=== PATIENT | male | born 1945 | race Caucasian/White ===

== ENCOUNTER 2016-07-19 08:35 | Day surgery (SDC) | payer MEDICARE, OTHER ==
--- NOTE | 2016-07-18 13:27 | HP ---
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 Debridement DATE OF SURGERY: July 19, 2016 SURGEON: Shemar Jennings M.D. PCP: Dr. 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 * Medication list reviewed with patient allergy list reviewed with patient. Home is here today for a pre-op H&P for upcoming proposed surgery. Patient's last consultation by Dr. Jennings is as follows: 70-year-old male, well-known to me for multiple orthopedic issues. He has a history of a remote left shoulder rotator cuff repair which I did arthroscopically. He had a repeat arthroscopy on 01/12/15 with a biceps tenotomy and at that time his cuff was intact. In October of last year he was trying a catch a ladder from falling on his , reaching his arm up away from his body overhead. He felt immediate pain with anterior and anterolateral discomfort. This has been intermittently quite problematic and limiting for him. Because of the symptoms he has backed off on any lifting. He does feel some weakness, no neck pain, no radicular symptoms. He saw [facility] for this on 04/19/16. Radiographs showed no acute findings. Additional workup since that visit has included an MRA. There is some signal compromising from his metallic anchors which makes complete interpretation somewhat difficult, although it appears that he has at least a high grade partial thickness tear involving the supraspinatus. He is interested in additional management options. We discussed the risks and benefits of both operative and non-operative management. He has elected to proceed with surgery and presents today preoperatively. He has had no recent illnesses. CURRENT MEDICATION * *Supplement Miscellaneous as directed fish oil, vitamin D3, glucosamine/chondroiten/MSM, Protein powder, 0 days, 0 refills * Adult Aspirin EC Low Strength 81 MG Tablet Delayed Release 1 once a day 0 days, 0 refills * Ibuprofen 200 MG Tablet as needed 0 days, 0 refills PAST MEDICAL/SURGICAL HISTORY Reported: Shoulder Arthroscopy Left shoulder scope/biceps tenotomy/debridement/SAD 01/12/[address] Jennings. Medical: History of Arthritis, Depression, and Poor healing wounds/lesions. Surgical / Procedural: Surgical / procedural history Back surgery, left knee scope by Dr. Jennings, left shoulder scope Dr. Jennings , right shoulder [address] Jennings, Bilat Thigh lipoma removal 08/26/[address] Jennings left and right upper mass removed 08/26/09, Right shoulder scope 06/15/11, 05/16/11, 11/17/10, replacement of a hip Left hip replaced 04/01/13, Right hip resurfacing 05/12/08, and Arthroscopy left knee surgery (unknown date), Right knee scope/MM/debridement done 08/12/[address] Jennings. Total Right Hip Replacement BHR 05/12/08. SOCIAL HISTORY Behavioral: Caffeine use, former smoker, and non-smoker quit smoking stopped 2004 after smoking for 25 years. Smoking status: Former smoker. Alcohol: Alcohol 1-2 drinks a week and alcohol use. Work: Occupation Retired. ALLERGIES * Codeine Derivatives FAMILY HISTORY Cancer father Stroke syndrome mother REVIEW OF SYSTEMS Systemic: No fever and no recent weight change. Head: No head symptoms. Cardiovascular: No cardiovascular symptoms. Pulmonary: No pulmonary symptoms. Gastrointestinal: No gastrointestinal symptoms. Psychological: No psychological symptoms. Skin: No skin lesions and no rash. PHYSICAL FINDINGS * Vitals taken 07/06/2016 12:04 pm BP-Sitting R 156/101 mmHg BP Cuff Size Regular Pulse Rate-Sitting 68 bpm Temp-Oral 97.4 F Height 67.75 in Weight 174 lbs Body Mass Index 26.7 kg/m2 Body Surface Area 1.92 m2 Pain Level 2 * Vitals taken 07/06/2016 12:06 pm BP-Sitting L 137/92 mmHg BP Cuff Size Regular Ears, Nose, Throat: * ENT: normal. Lungs: * Clear to auscultation. Cardiovascular: Heart Rate and Rhythm: * Normal. Abdomen: * Normal. Neurological: Motor: * Dominant Hand = Right Hand. Patient is a well-developed, well-nourished male in no acute distress, normal-appearing mood and affect. Evaluation of the shoulder girdle shows skin integrity to be well preserved, no wounds, rashes or lesions. He has previous well-healed arthroscopic portal sites. Evaluation of the shoulder shows mild tenderness anteriorly in the subacromial space. ROM is 150 degrees of elevation actively, 120 degrees of abduction, IR to his beltline, ER at his side to 60. He has give-way weakness secondary to pain with resisted supraspinatus testing. Normal external rotation strength testing, negative belly press. Biceps provocation tests are equivocal. He does have some asymmetry of the bicipital contour consistent with his prior biceps tenotomy. Elbow motion is full. Distal neurovascular exam is intact and symmetric. Pulses are palpable. Spurling's test is negative. TESTS * Test: CBC WITH DIFF Report Date: 07/06/2016 WBC 7.0 10*3/mL BASOPHIL 0.7 % RBC 4.59 10*6/uL Low NEUTROPHILS 64.6 % MCH 30.3 pg MCHC 33.4 g/dL RDW 12.4 % MCV 90.6 fL PLATELET COUNT 225 10*3/mL IMM NEUT % 0.1 % IMM NEUT # 0.0 10*3/mL MONOCYTES 8.5 % EOSINOPHIL 3.3 % High HCT 41.6 % HGB 13.9 g/L Low LYMPHOCYTE 22.8 % ANC 4.5 10*3/mL * Test: COMPREHENSIVE METABOLIC PANEL Report Date: 07/06/2016 ALT/SGPT 15 U/L ALBUMIN 4.2 g/dL ALB/GLOB RATIO 1.8 BUN 22 mg/dL BUN/CREAT RATIO 28 High CALCIUM 9.6 mg/dL GLUCOSE 104 mg/dL High CREATININE 0.8 mg/dL SODIUM 136 meq/L POTASSIUM 4.3 meq/L CHLORIDE 100 meq/L CARBON DIOXIDE 28 meq/L ANION GAP 12 meq/L TOT PROTEIN 6.5 g/dL GLOBULIN 2.3 g/dL BILI,TOTAL 0.4 mg/dL AST/SGOT 17 U/L ALK PHOSPHATASE 36 U/L GFR 96 High X-rays and MRI reviewed; please see radiologists interpretation on Stentor. Metal artifact from prior rotator cuff repair precludes exact interpretation of his cuff injury, but does appear to have high grade tear at least partial. Prior imaging as above. ASSESSMENT Left shoulder subacute injury with rotator cuff tear. This appears to be most likely a high grade partial tear, although unable to rule out full thickness component given the limitations of his scan because of prior surgery and retention of metallic anchors. THERAPY * Patient fall risk screen negative. * Patient eligible for fall risk assessment. * Patient received fall risk assessment. PLAN Left shoulder arthroscopic rotator cuff repair, subacromial decompression vs. debridement. Discussed with patient in detail the limitations, expectations as well as risks and possible complications of surgery including, but not limited to wound problems or infection, neurovascular injury, continued pain or dysfunction including the possibility of failure over time that may require additional operative or non-operative treatment. Patient also realizes the perioperative risks including risks associated with anesthesia and would like to proceed. A full PAR conference was held, questions and concerns addressed and informed consent was obtained. Patient will be sent from my office for completion of the preoperative workup. CARE TEAM Surya Cornell, DO [facility] TMR/sg
[~2016-07-19 08:35] MED LIST: CEFAZOLIN SODIUM 2 GRAM PREMIX 100 ML IV ONE; CEFAZOLIN SODIUM 2 GRAM PREMIX 100 ML IV PRN; EPINEPHRINE 3 MG in SODIUM CHLORIDE 3 L IRRIG BAG 3,000 ML IR PRN; FENTANYL 100 MCG/2 ML VIAL ONE; IV START KIT ONE; LACTATED RINGERS 1,000 ML ONE; MIDAZOLAM HCL 5 MG/5 ML VIAL ONE; NERVE BLOCK PROCEDURAL TRAY 1 EACH ONE; ROPIVACAINE 0.5% 30 ML VIAL ONE
[2016-07-19] MEDS ORDERED: MIDAZOLAM HCL 5 MG/5 ML VIAL ONE (10:25)
[2016-07-19] MEDS ORDERED: FENTANYL 250 MCG/5 ML AMP ONE (10:25)
[2016-07-19] MEDS ORDERED: SODIUM CHLORIDE 0.9% 50 ML ONE (10:27)
[2016-07-19] MEDS ORDERED: BUPIVACAINE 0.25% EPI PF 30 ML VIAL ONE (10:27)
[2016-07-19] MEDS ORDERED: PROPOFOL 20 ML IV ONE ×2 (10:56→13:37)
[2016-07-19] MEDS ORDERED: ROCURONIUM BROMIDE 10 MG/ML DOSE IV ONE (10:56)
[2016-07-19] MEDS ORDERED: LUBRICANT EYE OINTMENT (PF) 10 APPLIC TUBE ONE (11:42)
[2016-07-19] MEDS ORDERED: DEXAMETHASONE SOD PHOS 4 MG/1 ML VIAL ONE (11:51)
[2016-07-19] MEDS ORDERED: ONDANSETRON 4 MG/2ML 2 ML VIAL ONE (11:51)
[2016-07-19] MEDS ORDERED: EPHEDRINE SULFATE UD SYR 25 MG 25 MG/5 ML SYRINGE IV ONE (11:59)
[2016-07-19] MEDS ORDERED: ON-Q PUMP/ROPIVACAINE 0.2% 450 ML in PREMIX BAG 1 EACH NB PRN (12:24)
[2016-07-19] MEDS ORDERED: NALOXONE HCL 0.4 MG/ML VIAL IV PRN (12:24)
[2016-07-19] MEDS ORDERED: ATROPINE SULFATE 0.4 MG/1 ML VIAL IV PRN (12:24)
[2016-07-19] MEDS ORDERED: FENTANYL 100 MCG/2 ML VIAL IV PRN (12:24)
[2016-07-19] MEDS ORDERED: ONDANSETRON 4 MG/2ML 2 ML VIAL IV PRN ×2 (12:24→14:32)
[2016-07-19] MEDS ORDERED: PROMETHAZINE HCL 25 MG/ML VIAL IM PRN (12:24)
[2016-07-19] MEDS ORDERED: LACTATED RINGERS 1,000 ML IV SCH (12:30)
[2016-07-19] MEDS ORDERED: EPINEPHRINE 1 MG/ML 1ML AMP ONE ×2 (12:46→12:57)
[2016-07-19] MEDS ORDERED: FENTANYL 100 MCG/2 ML VIAL ONE (13:38)
[2016-07-19] MEDS ORDERED: ON-Q PUMP/ROPIVACAINE 0.2% 450 ML ONE (14:10)
--- NOTE | 2016-07-19 14:18 | PCMBPN ---
Brief Post Op Note: Date of Procedure: 07/19/16 Preoperative Diagnosis: left shoulder RCT- chronic Postoperative Diagnosis: left shoulder RCT chondromalacia glenoid Procedure: scope RCR, SAD, chondroplasty glenoid Surgeon: Shemar Jennings MD Assist: Gabby (TYRESE) Anesthesia: general (Bahrke) Condition: stable to PAR Complications: none IV Fluids: 700 mLs of LR Estimated Blood Loss: nil Tourniquet Time: [N/A] Specimens: [N/A] Implants: arthrex Drains: [N/A]
[2016-07-19] MEDS ORDERED: HYDROMORPHONE HCL 1 MG/ML SYRINGE IV PRN (14:32)
[2016-07-19] MEDS ORDERED: KETOROLAC TROMETHAMINE 30 MG/ML 1 ML VIAL IV PRN (14:32)
[2016-07-19] MEDS ORDERED: SODIUM CHLORIDE 0.9% 1,000 ML IV SCH (14:32)
[2016-07-19] MEDS ORDERED: OXYCODONE HCL 5 MG TABLET PO PRN (14:32)
[2016-07-19] MEDS ORDERED: KETOROLAC TROMETHAMINE 30 MG/ML 1 ML VIAL ONE (15:18)
[2016-07-19] MEDS ORDERED: OXYCODONE HCL 5 MG TABLET ONE (15:18)
[2016-07-19] MEDS ORDERED: SODIUM CHLORIDE 0.9% FLUSH 10 ML ONE (15:22)
--- NOTE | 2016-07-20 10:47 | OP ---
JONNA CLARK [id number] : 1945 DATE OF SURGERY: July 19, 2016 PREOPERATIVE DIAGNOSIS: Chronic left shoulder rotator cuff tear. POSTOPERATIVE DIAGNOSIS: 1. Chronic left shoulder rotator cuff tear. 2. Chondromalacia glenoid, left shoulder. PROCEDURE: 1. Left shoulder arthroscopic rotator cuff repair. 2. Left shoulder arthroscopic subacromial decompression. 3. Chondroplasty glenoid, left shoulder. SURGEON: Shemar Jennings M.D. PREMIUM CARD CANCELLATION CLERK: Gabby HANNA) ESTIMATED BLOOD LOSS: Nil ANESTHESIA: General plus interscalene block per Alicia FLUIDS: IV fluid replacement per anesthesia, 700 cc crystalloid DRAINS: None COMPLICATIONS: None INDICATION: Patient is a 71-year-old male who has a remote history of rotator cuff repair without incident approximately 20 years ago. More recently he had biceps tenotomy. At that time his cuff was intact, that was within the last 2 years. Unfortunately, last October he had an acute injury and has had increased pain since then. Workup has included a scan demonstrating a large retracted cuff. They have failed to improve sufficiently with traditional nonoperative treatment and at this time would like to move forward with elective shoulder arthroscopic evaluation and management. A full PAR conference was held, questions and concerns addressed and informed consent obtained. For additional details please refer to the previously dictated preoperative History and Physical Exam. PROCEDURAL DESCRIPTION: The patient was taken to the operating room after placement of a interscalene block. A general anesthetic was induced and a laryngeal masked airway was placed. The patient was then turned into the lateral decubitus position with left side up and held with a vacuum beanbag positioner. Bony prominences were well-padded and an axillary roll was placed. The shoulder girdle and upper extremity were then prepped and draped out in the usual sterile fashion. Examination under anesthesia was normal. Preoperative IV antibiotics were given empirically. Intraoperative DVT prophylaxis consisted of bilateral foot pumps. After sterile prep and drape the arm was suspended in balanced traction in slight flexion and abduction with a STAR sleeve. Bony landmarks were delineated and the subacromial space was injected with 30mL of 0.25% Marcaine with epinephrine. The shoulder was distended with saline. A standard posterior portal was established. A 4.0 mm 30 degree arthroscope was used. An arthroscopic pump system was utilized. A photographic record was made. An additional anterior working portal was established under direct intraarticular visualization. A complete diagnostic glenohumeral arthroscopy was then performed with the following findings: The subscapularis was normal. There was evidence of a previous bicipital tenotomy, superior labrum was intact. There was an obvious full thickness tear of the supraspinatus with retraction. Glenoid showed fairly significant inferior to the equator of grade II-B changes with flaps. This was extensive down to the labral interface. Posterior cuff was normal. At this point we used a 3.5 shaver and radiofrequency probe to perform a chondroplasty of the glenoid of the involved area. I then marked the spot of the cuff tear with a Prolene stitch. We then placed the arthroscope into the subacromial space and established a lateral working portal. A combination of the 3.5 mm shaver as well as the VAPR radiofrequency probe was used to partially debride the bursal tissue. We were then able to more completely evaluate the bursal space with the following findings: There was obvious retracted tear of the cuff. The bursa was quite adherent to this. There was a mild anterior acromial hook, thickened fibrous tissue anteriorly at this coracoacromial interval. I released the coracoacromial ligament and then performed an anterior and lateral acromioplasty with a 4.0 mm Acromioblaster daljit using the standard template method. At this point we turned our attention to the cuff. I initially placed 2 retention sutures in this using a Scorpion passer. This was fairly stiff, although I was able to partially reduce this. In order to mobilize that I carried our subacromial debridement further medially, both anteriorly and posteriorly and I was able to liberate more posterior aspect of the cuff bringing this anteriorly with near complete coverage. As we continued to work on this I placed a 3rd suture more posteriorly so there were 6 suture limbs with 3 inverted mattress stitches. I established an additional anterolateral working portal and then with time we were able to mobilize the cuff near completely closing over the articular surface. I debrided the modified footprint with the shaver and then placed two 4.75 biocomposite SwiveLock anchors, one more posterior and one at the anterior margin. I placed the posterior one first bringing the leaflet of cuff fairly far forward and then the anterior one to complete this. I used the additional check suture in the more anterior one that was stitched through the anterior margin at the interval of the cuff and brought back and tied more posteriorly into lateral cuff tissue creating complete coverage of the footprint. Given the additional condition of the cuff and the very large retracted tear, I was quite optimistic with what we were able to accomplish. Satisfied, after copious irrigation, I placed a spinal needle at the site of the repair through which approximately 6cc of PRP, which had been obtained and prepared in the standard fashion was injected at the completion of the procedure. Cannulas were then removed. Portals sites were closed with interrupted 4-0 Nylon. A sterile bulky shoulder dressing was applied. The patient was then returned to the supine position, awakened, extubated, transferred to their hospital bed, and sent to post anesthesia recovery in stable condition. They tolerated the procedure well. Sponge, instrument and needle count were correct. DT: MERYL/cielo CC: Shannan Cornell DO [facility]
== END 2016-07-19 13:53 | disposition home or self-care (01) ==
LOC: SDC 08:35
PROVIDERS: ATTEND Orthopaedic Surgery
DX: S46.812A Strain of other muscles, fascia and tendons at shoulder and upper arm level, left arm, initial encounter (principal); M94.212 Chondromalacia, left shoulder; Z87.891 Personal history of nicotine dependence
CPT/HCPCS: 29827; 29826; J3010 ×3; J1100; A9270 ×2; J2795 ×3; J1885; J2250 ×2; J2405; J7120; A4306; J0171 ×2; J0690